=== PATIENT | female | born 1955 | race Caucasian/White ===

== ENCOUNTER → 2022-04-20 | Day surgery (SDC) | payer MEDICARE, BC | LOC: DL.SDS 09:20 | PROVIDERS: ATTEND Ophthalmology | DX: H25.812 Combined forms of age-related cataract, left eye (principal); E78.5 Hyperlipidemia, unspecified; G47.30 Sleep apnea, unspecified; K21.9 Gastro-esophageal reflux disease without esophagitis; E66.9 Obesity, unspecified; M19.90 Unspecified osteoarthritis, unspecified site; Z91.041 Radiographic dye allergy status; Z88.1 Allergy status to other antibiotic agents; Z88.8 Allergy status to other drugs, medicaments and biological substances; Z79.899 Other long term (current) drug therapy; Z98.890 Other specified postprocedural states | CPT/HCPCS: 00142; 66984; V2632 ==

== ENCOUNTER 2022-05-04 09:06 | Day surgery (SDC) | payer MEDICARE, BC ==
[2022-05-04] MEDS ORDERED: Dexamethasone 4 MG/ML SDV IV ONE (09:07)
[2022-05-04] MEDS ORDERED: Sodium Chloride 0.9% 10 ML Syringe IV ONE (09:07)
[2022-05-04] MEDS ORDERED: Midazolam 1 MG/ML 2 ML SDV IV ONE (09:07)
[2022-05-04] MEDS ORDERED: Proparacaine 0.5% Ophth Soln 15 ML Bottle EYERT ONE ×2 (09:15→10:34)
[2022-05-04] MEDS ORDERED: Cataract Ophth Solution EYERT ONE (09:15)
[2022-05-04] MEDS ORDERED: Tropicamide 1% Ophth Soln 15 ML Bottle EYERT ONE (09:15)
[2022-05-04] MEDS ORDERED: Povidone-Iodine 5% Sterile Ophth Soln 30 ML Bottle EYERT ONE ×2 (09:15→10:36)
[2022-05-04] MEDS ORDERED: Phenylephrine 10% Ophth Soln 5 ML Bot EYERT PRN (09:15)
[2022-05-04] MEDS ORDERED: Acetaminophen 325 MG Tab PO PRN (09:15)
[2022-05-04] MEDS ORDERED: Moxifloxacin 0.5% Ophth Soln 3 ML Bottle EYERT ONE (09:15)
[2022-05-04] MEDS ORDERED: Timolol Maleate 0.5% Ophth Soln 5 ML Bottle EYERT ONE (09:15)
[2022-05-04] MEDS ORDERED: Ondansetron 4 MG/2 ML SDV IVPUSH PRN (09:15)
[2022-05-04] MEDS ORDERED: Acetaminophen/Codeine 300-30 MG Tab PO PRN (09:15)
[2022-05-04] MEDS ORDERED: Sodium Chloride 0.9% 10 ML Syringe FLUSH PRN (09:15)
[2022-05-04] MEDS ORDERED: Apraclonidine 0.5% Ophth Soln 5 ML Bot EYERT ONE (10:36)
[2022-05-04] MEDS ORDERED: Dexamethasone/Neomycin/Polymyxin B Ophth Oint 3.5 GM Tube EYERT ONE (10:37)
[2022-05-04] MEDS ORDERED: Diclofenac Sodium 0.1% Ophth Soln 5 ML Bottle EYERT ONE (10:37)
[2022-05-04] MEDS ORDERED: Lidocaine 1% 30 ML SDV ONE (10:38)
[2022-05-04] MEDS ORDERED: Balanced Salt Solution Ophth Irrig 15 ML Bottle EYERT ONE (10:39)
[2022-05-04] MEDS ORDERED: Vancomycin 500 MG SDV EYERT ONE (10:39)
[2022-05-04] MEDS ORDERED: Chondroitin Sulfate/Hyaluronate Sodium Ophth Inj 0.75 ML Syringe EYERT ONE (10:40)
== END 2022-05-04 11:30 | disposition home or self-care (01) ==
LOC: DL.SDS 09:06
PROVIDERS: ATTEND Ophthalmology
DX: H25.811 Combined forms of age-related cataract, right eye (principal); E78.5 Hyperlipidemia, unspecified; G47.30 Sleep apnea, unspecified; M79.7 Fibromyalgia; E66.9 Obesity, unspecified; Z98.890 Other specified postprocedural states; Z79.899 Other long term (current) drug therapy; Z88.8 Allergy status to other drugs, medicaments and biological substances
CPT/HCPCS: 00142; 66984; A9270; J1100; J2250; J3370; J3490; V2632